=== PATIENT | male | born 1945 | race Native Hawaiian/Other Pacific Islander ===

== ENCOUNTER 2021-12-28 19:56 | Emergency (ER) | payer OTHER ==
[~2021-12-28] VITALS: Ht 175.3 cm; Wt 77.1 kg
[2021-12-28 20:20] LABS: PLATELET COUNT 308 K/uL (142-355)
[2021-12-28 20:28] LABS: POTASSIUM 3.8 mmol/L (3.6-5.2)
[2021-12-28 22:05] VITALS: BP 121/84; TEMP 98.1
[2021-12-29] MEDS ORDERED: ASPIRIN LOW DOS81 MG PO (08:49)
[2021-12-29] MEDS ORDERED: DONEPEZIL HYDRO10 M1 PO ×2 (08:49→08:51)
[2021-12-29] MEDS ORDERED: ESOMEPRAZOLE MA40 M1 PO (08:52)
[2021-12-29] MEDS ORDERED: FLUOXETINE20 MG PO (08:53)
[2021-12-29] MEDS ORDERED: NYSTATIN/TRIAMC1 CRE TOP (08:54)
[2021-12-29] MEDS ORDERED: QUETIAPINE50 MG PO ×2 (08:55)
[2021-12-29] MEDS ORDERED: CRESTOR20 MG PO (08:56)
[2021-12-29] MEDS ORDERED: TAMS0.4C PO (08:56)
[2021-12-29] MEDS ORDERED: TROSPIUM CL20 MG PO (08:57)
[2021-12-29] MEDS ORDERED: TYLENOL325 MG PO (08:58)
[2021-12-29] MEDS ORDERED: DICLOFENAC SODIUM1 % TOP (08:59)
[2021-12-29] MEDS ORDERED: LORA0.5T17 PO (09:00)
== END 2021-12-28 22:10 | disposition still patient (30) ==
LOC: ED 19:56
PROVIDERS: Emergency Medicine Emergency Medical Services
DX: F03.911 Unspecified dementia, unspecified severity, with agitation (principal); Z11.52 Encounter for screening for COVID-19; Z04.6 Encounter for general psychiatric examination, requested by authority
CPT/HCPCS: 36415; 80053; 81002; 85027; 87635; 93005; 99283; U0003

== ENCOUNTER 2022-06-20 17:38 | Emergency (ER) | payer OTHER ==
[~2022-06-20] VITALS: Ht 172.7 cm; Wt 80.7 kg
[2022-06-20 17:38] VITALS: BP 165/77; TEMP 97.9
[~2022-06-20 17:38] MED LIST: ACET-206 PO; ASPI81TA4 PO; ASPIRIN LOW81 MG PO; ATOR20TA2 PO; DICLOFENAC SODIUM1 % TOP; DONE5TAB PO; DONEPEZIL HYDRO10 M1 PO; ESOMEPRAZOLE MA40 M1 PO; FLUOXETINE20 MG PO; LORA0.5T17 PO; MAGNSUS68 PO; NYSTATIN/TRIAMC1 CRE TOP; NYSTCRE TOP; PANTOPRAZOLE 40MG TA PO; QUET25TA2 PO; QUETIAPINE50 MG PO; ROSUVASTATIN CA40 MG PO; TAMS0.4C PO; TROSPIUM CL20 MG PO; TYLENOL325 MG PO; Voltaren GEL 1% 100G TOP
[2022-06-20 18:08] LABS: PLATELET COUNT 302 K/uL (142-355)
[2022-06-20 18:20] LABS: POTASSIUM 3.7 mmol/L (3.6-5.2)
[2022-06-20] MEDS ORDERED: DONEPEZIL HYDRO10 MG PO (20:08)
[2022-06-20] MEDS ORDERED: FLUOXETINE20 MG PO (20:09)
[2022-06-20] MEDS ORDERED: FLUOXETINE HYDR20 MG PO (20:10)
[2022-06-20] MEDS ORDERED: FLUOXETINE40 MG PO (20:11)
[2022-06-20] MEDS ORDERED: QUETIAPINE50 MG PO (20:12)
[2022-06-20] MEDS ORDERED: CIALIS5 MG PO (20:14)
[2022-06-20] MEDS ORDERED: LORA0.5T17 PO (20:17)
[2022-06-20] MEDS ORDERED: MILK OF MA400 MG/5 M PO (20:18)
[2022-06-20] MEDS ORDERED: QUET25TA2 PO (20:19)
== END 2022-06-20 18:34 | disposition still patient (30) ==
LOC: ED 17:38
PROVIDERS: Emergency Medicine
DX: F91.3 Oppositional defiant disorder (principal); F03.90 Unspecified dementia, unspecified severity, without behavioral disturbance, psychotic disturbance, mood disturbance, and anxiety; Z02.79 Encounter for issue of other medical certificate
CPT/HCPCS: 80053; 81002; 85027; 87635; 93005; 99283; U0003